=== PATIENT | female | born 1995 | race Caucasian/White ===

== ENCOUNTER 2019-02-19 06:00 | Day surgery (SDC) | payer OTHER ==
--- NOTE | 2019-02-18 17:57 | Pre-Procedure Note/Attestation ---
Pre-Procedure Note/Attestation Complete Prior to Procedure Planned Procedure: not applicable Procedure Narrative: 1. Septoplasty 2. SMR right inferior turbinate 3. SMR left inferior turbinate 4. Repair nasal deformity Indications for Procedure Pre-Operative Diagnosis: 1. Nasal septal deviation 2. Hypertrophied right inferior turbinate 3. Hypertrophied left inferior turbinate 4. Nasal deformity Attestation I attest that I discussed the nature of the procedure; its benefits; risks and complications; and alternatives (and the risks and benefits of such alternatives ), prior to the procedure, with the patient (or the patient's legal billing representative). I attest that, if there was a reasonable possibility of needing a blood transfusion, the patient (or the patient's legal billing representative) was given the [place] [employer] [facility] standardized written summary, pursuant to the [employer] [place] Blood Safety Act ([place] Health and Safety Code # 1645, as amended). I attest that I re-evaluated the patient just prior to the surgery and that there has been no change in the patient's H&P. José Antonio Ramirez MD Feb 18, 2019 17:57
--- NOTE | 2019-02-18 17:59 | Brief Operative Note ---
Immediate Post Operative Note Operative Note Chief Complaint: nasal airway obstruction, nasal deformity Pre-op Diagnosis: 1. Nasal septal deviation 2. Hypertrophied right inferior turbinate 3. Hypertrophied left inferior turbinate 4. Nasal deformity Procedure: 1. Septoplasty 2. SMR right inferior turbinate 3. SMR left inferior turbinate 4. Repair nasal deformity Post-op Diagnosis: same as pre-op Surgeon: José Antonio Ramirez MD Sheet Pile Driver Operator: none Additional Surgeons: none Anesthesiologist: Rogelio Anesthesia: general Specimen: none Complications: none Condition: stable Fluids: D5LR Estimated Blood Loss: volume - 75 cc Drains: none Packing: Sino-nasal gel Implant(s) used?: No José Antonio Ramirez MD Feb 18, 2019 17:58
--- NOTE | 2019-02-18 18:18 | History & Physical ---
History of Present Illness General Date patient seen: Feb 11, 2019 Time patient seen: 16:30 Reason for Hospitalization: outpt nasal surgery Present Illness HPI Pt has failed nasal steroid and antihistamines. Has a nasal deformity, septal deviation and hypertrophied inferior turbinates. Allergies: Coded Allergies: No Known Allergies (Unverified , 02/18/19) Medication History Scheduled Amoxicillin* (Amoxil*), 500 MG ORAL EVERY 8 HOURS Amphet Asp/Amphet/D-Amphet (Adderall 30 Mg Tablet), 30 MG ORAL DAILY, (Reported) [Minestrin], 1 TAB PO DAILY, (Reported) [Plaquenil], Unknown Dose PO DAILY, (Reported) Scheduled PRN Hydrocodone Bit/Acetaminophen 5-325* ([place] 5-325*), 1 TAB ORAL Q6H PRN Patient History History Provided By: Patient Healthcare decision maker Resuscitation status full code Advanced Directive on File none Patient History Narrative above in HPI Review of Systems Review of Symptoms General ROS: no weight loss or fever Psychological ROS: no depression or mood changes, no memory loss, +ADD Ophthalmic ROS: no visual changes or eye irritation ENT ROS: no nasal congestion, hearing loss, dizziness Allergy and Immunology ROS: no allergic symptoms or urticaria Hematological and Lymphatic ROS: no swollen glands, unusual bleeding or bruising Endocrine ROS: no polyuria, polydipsia, weight changes, temperature intolerance Respiratory ROS: no cough, shortness of breath, or wheezing Cardiovascular ROS: no chest pain or dyspnea on exertion Gastrointestinal ROS: denies abdominal pain, bright red blood in stool. Musculoskeletal ROS: no myalgias or arthralgias Neurological ROS: no TIA or stroke symptoms Dermatological ROS: no new or changing skin lesions, rashes or pruritis Physical Exam Physical Exam General appearance: alert, cooperative, no distress, appears stated age Head: Normocephalic, without obvious abnormality, atraumatic Eyes: conjunctivae/corneas clear. PERRL, EOM's intact. Fundi benign Throat: Lips, mucosa, and tongue normal. Teeth and gums normal NOSE: SEPTAL DEVIATION, HYPERTROPHIED INFERIOR TURBINATES AND NASAL DEFORMITY. Neck: supple, symmetrical, trachea midline, no adenopathy, thyroid: not enlarged, symmetric, no tenderness/mass/nodules, no carotid bruit and no JVD Lungs: clear to auscultation bilaterally Heart: regular rate and rhythm, S1, S2 normal, no murmur, click, rub or gallop Abdomen: soft, non-tender. Bowel sounds normal. No masses, no organomegaly Extremities: extremities normal, atraumatic, no cyanosis or edema Pulses: 2+ and symmetric Skin: Skin color, texture, turgor normal. No rashes or lesions Neurologic: Grossly normal BP 120/80 HR 72 RR 12 Not indicated for this pt-under 45 without heart or lung issues. NA Height (Feet): 5 Height (Inches): 10 Weight (Pounds): 130 Medications Adderall Loestrin Objective Narrative Nose: septal deviation, hypertrophied inferior turbinates, nasal deformity Assessment/Plan Status: stable Assessment/Plan: outpt surgery 1. Septoplasty 2. SMR right inferior turbinate 3. SMR left inferior turbinate 4. Repair nasal deformity [facility] Hospital declaration Disposition: Once the patient is stable to leave the hospital, I anticipate the patient will likely be discharged to the following environment: HOME Estimated discharge date: 02/19/19 date of surgery I spent 70 minutes on this patient's case, and minutes was dedicated to counseling and/or care coordination. MEDICAL COMPLEXITY High complexity medical decision making (need 2/3 categories) Problem - need 4 points Acute/new problem with new plan for workup (4 points, 1 max) Acute/new problem without additional workup (3 points, 1 max) Unstable chronic problem actively being managed (2 point each, 2 max) Stable chronic problem actively being managed (1 point each, 2 max) Self-limited/transient process (constipation, muscle ache, etc) (1 point each , 2 max) Data - need 4 points Reviewed labs/imaging studies (1 points, 2 max) Independent review of imaging (EKG, xrays, etc) (2 points, 2 max) Discussed case with consult/other MD/RN (2 points, 2 max) High Risk - qualify if have one of the following: Severe exacerbation of acute problem, acute mental status change, IV narcotics , monitoring drug levels (vancomycin, INR, tacrolimus etc) José Antonio Ramirez MD Feb 18, 2019 18:18
--- NOTE | 2019-02-18 18:24 | Discharge Instructions ---
Discharge Instructions Discharge Instructions Follow up with: 02/26/19 3:[address] Ramirez's office Diet: regular Resume Normal Activity?: No Activity: light activity Follow Up Orders Pt has printed instructions which were reviewed with pt and her Mother while at pre op visit. She also has post op meds already-RX given to her at same visit. Return to Work/School on: Mar 04, 2019 Special Instructions ice to face x 48 hours For Surgical Patients Dressing Care: may change May shower: No Contact your physician for: bleeding, pain, tenderness, redness, swelling, yellowish discharge in the op. site For Congestive Heart Failure Reminder Report to your physician any weight gain of 5 pounds or more in one week. José Antonio Ramirez MD Feb 18, 2019 18:24
[~2019-02-19] VITALS: Ht 177.8 cm; Wt 59.0 kg
[2019-02-19] VITALS (11 sets, daily range): BP systolic 111–140; BP diastolic 68–87
[~2019-02-19 06:00] MED LIST: ADDERALL 30 MG30 MG ORAL; AMOXICILLIN500 MG ORAL; NORCO 5-325 TA1 EACH ORAL; PLAQUENIL PO; [UNRECOGNIZED DRUG - OTHER] PO
[2019-02-19] MEDS ORDERED: Bacitracin Oint 15gm Tube TOPIC ONE (07:14)
[2019-02-19] MEDS ORDERED: Lidocaine 1% 10mg/ml/Epi 0.005mg/ml 30ml vial INJ ONE (07:14)
[2019-02-19] MEDS ORDERED: Bupivacaine w/Epi 0.5% 30ml Vial INJ ONE (07:14)
[2019-02-19] MEDS ORDERED: Cocaine HCl 4% 4ml vial TOPIC ONE (07:14)
[2019-02-19] MEDS ORDERED: ceFAZolin sod 1 GM in D5W 55 ML IV ONE (07:15)
--- NOTE | 2019-02-19 07:22 | Anethesia Preoperative Eval ---
Anesthesia Pre-op PMH/ROS General Date of Evaluation: Feb 19, 2019 Anesthesiologist: Rogelio ASA Score: ASA 2 Mallampati Score Class I : Soft palate, uvula, fauces, pillars visible Class II: Soft palate, uvula, fauces visible Class III: Soft palate, base of uvula visible Class IV: Only hard plate visible Mallampati Classification: Class I Surgeon: James Diagnosis: Deviataed septum Surgical Procedure: Septoplasty, SMR TURBS Anesthesia History: none Family History: no anesthesia problems Allergies: Coded Allergies: No Known Allergies (Unverified , 02/19/19) Medications: see eMAR Patient NPO?: Yes NPO Date: Feb 18, 2019 NPO Time: 22:00 Past Medical History Cardiovascular: Denies: HTN, CAD, [place], valve dz, arrhythmia, other Pulmonary: Denies: asthma, COPD, RODNEY, other Gastrointestinal/Genitourinary: Denies: GERD, CRI, ESRD, other Neurologic/Psychiatric: Reports: other - ADHD Endocrine: Denies: DM, hypothyroidism, steroids, other HEENT: Denies: cataract (L), cataract (R), glaucoma, SENECA-CAYUGA (L), SENECA-CAYUGA (R), other Hematology/Immune: Denies: anemia, DVT, bleeding disorder, other Musculoskeletal/Integumentary: Denies: OA, RA, DJD, DDD, edema, other PSxH Narrative: Right radius surgery Anesthesia Pre-op Phys. Exam Physician Exam Last Vital Signs Date Time Temp Pulse Resp B/P (MAP) Pulse Ox O2 Delivery O2 Flow Rate FiO2 02/19/19 06:37 Room Air 02/19/19 06:31 98.1 75 18 111/68 99 Constitutional: NAD Cardiovascular: RRR Respiratory: CTA Airway Exam Mallampati Score: Class II MO: full ROM: full Teeth: intact Anesthesia Pre-op A/P Labs see chart Urine Test Test 02/19/19 06:15 Urine HCG, Qualitative Negative (NEGATIVE) Risk Assessment & Plan Assessment: ASA II Plan: GA Status Change Before Surgery: No Pre-Antibiotics Drug: Melida Rose MD Feb 19, 2019 07:22
[2019-02-19] MEDS ORDERED: Midazolam 2mg/2ml Inj ONE (07:33)
[2019-02-19] MEDS ORDERED: Lidocaine 1% MPF 10mg/ml 5ml ONE (07:33)
[2019-02-19] MEDS ORDERED: Propofol 200mg/20ml IV ONE (07:33)
[2019-02-19] MEDS ORDERED: fentaNYL 100 mcg/2 mL IV ONE (07:33)
[2019-02-19] MEDS ORDERED: Sterile Water Irrig 1000ml IRRIG ONE (07:38)
[2019-02-19] MEDS ORDERED: LR 1000ml 1,000 ML IVLG SCH (07:38)
[2019-02-19] MEDS ORDERED: LR 1000ml ONE (07:38)
[2019-02-19] MEDS ORDERED: NS Irrig 1000ml ONE (07:38)
[2019-02-19] MEDS ORDERED: Dexamethasone 4mg/ml vial ONE (07:39)
[2019-02-19] MEDS ORDERED: Metoclopramide 10mg/2ml Inj ONE (07:39)
[2019-02-19] MEDS ORDERED: Metoclopramide 10mg/2ml Inj IVP PRN ×2 (07:45→09:15)
[2019-02-19] MEDS ORDERED: DiphenhydrAMINE 50mg/ml Inj IVP PRN (07:45)
[2019-02-19] MEDS ORDERED: LORazepam Inj 2mg/ml 1ml IV PRN (07:45)
[2019-02-19] MEDS ORDERED: Midazolam 2mg/2ml Inj IVP PRN (07:45)
[2019-02-19] MEDS ORDERED: fentaNYL 100 mcg/2 mL IV PRN (07:45)
[2019-02-19] MEDS ORDERED: Hydromorphone 0.5mg/0.5ml inj IVP PRN (07:45)
--- NOTE | 2019-02-19 08:46 | Immediate Post-Op Evaluation ---
Immediate Post-Op Evalulation Immediate Post-Op Evalulation Procedure: septoplasty smr turbs Date of Evaluation: Feb 19, 2019 Time of Evaluation: 08:48 IV Fluids: 700 Blood Products: 0 Estimated Blood Loss: 75 Urinary Output: 0 Blood Pressure Systolic: 140 Blood Pressure Diastolic: 82 Pulse Rate: 109 Respiratory Rate: 16 O2 Sat by Pulse Oximetry: 100 Temperature (Fahrenheit): 97.6 Pain Score (1-10): 0 Nausea: No Vomiting: No Complications 0 Patient Status: awake, reacts, patent, none Hydration Status: adequate Drug: Ancef 1g Given Within 1 Hr of Incision: Yes Melida Magallanes MD Feb 19, 2019 08:45
--- NOTE | 2019-02-19 08:47 | 48 Hour Post Anesthesia Eval ---
Post Anesthesia Evaluation Procedure: septoplasty smr turbs Date of Evaluation: Feb 19, 2019 Airway: patent Nausea: No Vomiting: No Hydration Status: adequate Cardiopulmonary Status: at baseline Mental Status/LOC: patient returned to baseline Post-Anesthesia Complications: 0 Follow-up care needed: ready to discharge Melida Magallanes MD Feb 19, 2019 08:47
[2019-02-19] MEDS ORDERED: HYDROmorphone 1mg/ml Carpuject SUBQ PRN (09:15)
[2019-02-19] MEDS ORDERED: HYDROcodone/Acetamin 5/325 tab ORAL PRN (09:15)
--- NOTE | 2019-02-19 14:30 | Operative Note - Dictated ---
DATE OF OPERATION: 02/19/2019 SURGEON: José Antonio Ramirez M.D. PLATE FURNACE OPERATOR: None. ANESTHESIOLOGIST: Melida Mercado M.D. ANESTHESIA: LMA general anesthesia as well as 15 mL 50:50 mixture of 0.5% Sensorcaine with 1:200,000 epinephrine and 1% lidocaine with 1:200,000 epinephrine. Additionally placed on 4 topical pledgets, 2 in either nostril a total of 4 mL of 4% topical cocaine. The pledgets were accounted for at the end of the case. PREOPERATIVE DIAGNOSIS: Nasal airway obstruction secondary to septal deviation and hypertrophied right and left inferior turbinates and nasal deformity. POSTOPERATIVE DIAGNOSIS: Nasal airway obstruction secondary to septal deviation and hypertrophied right and left inferior turbinates and nasal deformity. FINDINGS: Septal spur to the right with septal deviation, anterior nasal deformity, hypertrophied right and left inferior turbinates. PROCEDURE: 1. Septoplasty. 2. Submucous resection right inferior turbinate. 3. Submucous resection left inferior turbinate. 4. Nasal deformity. TECHNIQUE: The patient prepped and draped in usual manner via LMA general anesthesia. Time-out was performed. All agreed to the procedure and equipment to be utilized. I injected with the aforementioned lidocaine, Marcaine, and epinephrine mixture supraorbital and infraorbital area as well as bilateral inferior turbinates, septum, nasal mucosa, and over the anterior nose. I then made an incision in the left inferior turbinate with 15 blade. I then passed x2 at a setting of 6 for 10 seconds each radiofrequency wand into the left inferior turbinate. I then outfractured with a Boies elevator. I then addressed the right inferior turbinate. A small incision made with a 15 blade. I then passed a radiofrequency wand, setting of 6, 10 seconds each after coating with saline gel just like the other side. I then outfractured with a Boies elevator. I then proceeded to make an incision in the right side of the septum in the [place] position. Utilizing a dental elevator, I elevated subperichondrially and subperiosteally. I then removed the lower 4 mm of the quadrangular cartilage of the septum under direct vision and grasped with a Cora and removed. I then was able to remove the vomer on the right side, which had been pushing the cartilage out. This too was removed with a Cora once freed with a straight guarded osteotome. I then sewed this back together with a single 4-0 plain suture. I made between the cartilage incisions with a 15 blade and elevated with a small escobar scissors and then outfractured anteriorly. I then used a gouge osteotome anteriorly with a small bump in the nose and then low lateral osteotomy. I then positioned the nose making sure there was no greenstick fracture and it was freely mobile. I rasped the anterior nose. I then was able to place tape and stent on the nose. One syringe full of sinonasal gel was placed in either naris. Mustache dressing was placed. ESTIMATED BLOOD LOSS: 75 mL. COMPLICATIONS: None. DRAINS: None. The patient was extubated, awake, and alert in the operating room prior to transfer to recovery room. I then went and spoke to the mother for about 10 minutes and came back to the recovery room. The patient was stable, awake, and alert. José Antonio Ramirez M.D. DR: SONU JOB#: [id number] CC:
== END 2019-02-19 11:00 | disposition home or self-care (01) ==
LOC: SUR 06:00
DX: J34.89 Other specified disorders of nose and nasal sinuses (principal); J34.2 Deviated nasal septum; J34.3 Hypertrophy of nasal turbinates; M95.0 Acquired deformity of nose; Z79.899 Other long term (current) drug therapy
CPT/HCPCS: 30140; 30520; 81025; J0690; J1100; J2250; J2405; J2704; J2765; J3010; 94003; 94150